=== PATIENT | female | born 1955 | race Caucasian/White ===

== ENCOUNTER → 2017-08-30 | Outpatient (CLI) | payer BC ==
[~2017-08-30] MED LIST: MNTL10T
--- NOTE | 2017-08-31 18:57 | Diagnostic Imaging Report ---
Bilateral screening mammogram 2D views with tomosynthesis The current study was also evaluated with a Computer Aided Detection (CAD) system. Indication: Screening. No current complaints stated on the questionnaire. COMPARISON: 08/24/16 FINDINGS: The breasts are composed of scattered fibroglandular densities. There are scattered benign-appearing calcifications Allowing for technique and positional differences, no suspicious change is seen. IMPRESSION: No significant change. ACR BI-RADS Category 2: Benign findings. Result letter will be mailed to the patient. Note: At least 10% of breast cancer is not imaged by mammography. Dictated by: Dictated on workstation # [id number]
== END ==
LOC: RAD 12:48
PROVIDERS: ATTEND Nurse Practitioner
DX: Z12.31 Encounter for screening mammogram for malignant neoplasm of breast (principal)
CPT/HCPCS: 77067

== ENCOUNTER 2017-09-02 05:42 | Outpatient (CLI) | payer BC ==
[~2017-09-02] VITALS: Ht 170.2 cm; Wt 103.9 kg
[2017-09-02] MEDS ORDERED: CETI10TA20 PO (16:27)
== END 2017-09-02 16:28 ==
LOC: PREOP 05:42
PROVIDERS: ATTEND Surgery
DX: Z01.818 Encounter for other preprocedural examination (principal); Z12.11 Encounter for screening for malignant neoplasm of colon

== ENCOUNTER 2017-09-08 11:08 | Day surgery (SDC) | payer BC ==
[~2017-09-08 11:08] MED LIST changes: +CETI10TA20 PO
[2017-09-08 11:45] VITALS: BP 127/71
[2017-09-08] MEDS ORDERED: LACTATED RINGERS 1,000 ML IV STA (11:59)
--- NOTE | 2017-09-08 12:03 | Progress Note-Pre Operative ---
Pre-Operative Progress Note H&P Reviewed The H&P was reviewed, patient examined and no changes noted. Time Seen by Provider: 11:59 Date H&P Reviewed: Sep 08, 2017 Time H&P Reviewed: 12:03 Pre-Operative Diagnosis: screening colonoscopy YUMIKO HANNA DO Sep 08, 2017 12:03
[2017-09-08] MEDS ORDERED: PROPOFOL INJECTION 50 ML IV ONE (12:18)
[2017-09-08] MEDS ORDERED: MIDAZOLAM 2 MG/2 ML (VERSED) VIAL ONE (12:19)
[2017-09-08] MEDS ORDERED: proPOfol 200 MG/20 ML (DIPRIVAN) VIAL IV ONE (12:44)
[2017-09-08 13:15] VITALS: BP 110/65
--- NOTE | 2017-09-08 13:31 | Progress Note-Post Operative ---
Post-Operative Progess Note Surgeon (s)/Truer Pinion And Wheel (s) Surgeon YUMIKO HANNA DO Truer Pinion And Wheel: none Pre-Operative Diagnosis screening colonoscopy Post-Operative Diagnosis Polyp Early tics Int Hem Procedure & Operative Findings Date of Procedure 09/08/17 Procedure Performed/Findings Colon with snare colon with cold bx Anesthesia Type IV sedation by anesthesia Estimated Blood Loss Estimated blood loss (mL): scant Specimens/Packing Specimens Removed transverse colon polyp sigmoid colon polyp YUMIKO HANNA DO Sep 08, 2017 13:31
--- NOTE | 2017-09-08 13:32 | Endoscopy Discharge Instruct ---
Endo Procedure/Findings Findings 1.: Polyp 2.: Diverticulosis 3.: Internal Hemorrhoids Discharge Instructions - Activity: You might feel a little sleepy until tomorrow. This is due to the medicine you received to relax you. Until tomorrow, you should: NOT drive a car, operate machinery or power tools. NOT drink any alcoholic beverages. NOT make any important decisions or sign importortant papers. Do not return to work until tomorrow, unless otherwise instructed. Resume previous activities tomorrow. Diet: Start by taking liquids. If you tolerate liquids, advance to solid food. make appointment for one week Notify Physician - -If you experience excessive bleeding, unusual abdominal pain, fever, or chest pain, contact your doctor immediately. [phone] Follow-Up: - I have received and understand the above instructions and will call my doctor if I have any further questions. Patient Signature Date Nurse Signature Other (Relationship) YUMIKO HANNA DO Sep 08, 2017 13:32
[2017-09-08 13:45] VITALS: BP 123/79
[2017-09-08 13:51] VITALS: BP 123/79
--- NOTE | 2017-09-09 20:03 | OPERATIVE REPORT ---
DATE OF SERVICE: 09/08/2017 PROCEDURE: Screening colonoscopy. POSTOPERATIVE DIAGNOSES: 1. Colon polyps. 2. Diverticula. 3. Internal hemorrhoids. PROCEDURE: 1. Colonoscopy with snare polypectomy. 2. Colonoscopy with cold biopsy. SURGEON: Dr. Rafiq Chamberlain. ROLL HAULER: None. ANESTHESIA: IV sedation by the anesthesiologist. SPECIMEN: One polyp from the transverse colon and one polyp from the sigmoid colon. BLOOD LOSS: Scant. FLUIDS: Per anesthesia. POSTOPERATIVE CONDITION: Stable. INDICATIONS FOR PROCEDURE: The patient is a 62-year-old female, who has never had a colonoscopy and needs one for screening. FINDINGS: The patient had two small polyps, one in the transverse colon and one in the sigmoid. Able to do a snare polypectomy on the first one, but the second was so flat, had to do a cold biopsy. She had the beginnings of some early diverticula and she had some small internal hemorrhoids. No other obvious pathology found. PROCEDURE NOTE: After informed consent was obtained, the patient was brought to the endoscopy suite, placed in the bed in the left lateral decubitus position. She was administered IV sedation during the case and anesthesiologist monitored her vitals the entire time. Scope was inserted, pushed all the way to the cecum. Once in the cecum, took a picture appendiceal orifice, noted the ileocecal valve and then slowly withdrew the scope insufflating to look circumferentially at the murray, looking at the cecum, up the ascending colon to the hepatic flexure, then into the transverse colon and in the transverse colon, saw a small polyp, did a snare polypectomy of this, then continued down to the splenic flexure and then into the descending colon, saw the beginnings of some early diverticula in the descending and the sigmoid colon, continued down into the sigmoid colon, saw another polyp, attempted to do a snare polypectomy, but could not because it was too flat, so did a cold biopsy, able to get this polyp in one bite and remove it and then continued down into the rectum. Retroflexed in the rectal vault, saw some minimal internal hemorrhoids. The scope was then removed. The patient tolerated this procedure and was recovered in the endoscopy suite. Job ID: [id number] DocumentID: [id number] Dictated Date: 09/09/2017 10:30:22 Power Cutting Machine Operator Date: 09/09/2017 16:47:53 Dictated By: RAFIQ CHAMBERLAIN DO
== END 2017-09-08 13:50 | disposition home or self-care (01) ==
LOC: ENDO 11:08
PROVIDERS: ATTEND Surgery
DX: Z12.11 Encounter for screening for malignant neoplasm of colon (principal); D12.3 Benign neoplasm of transverse colon; K63.5 Polyp of colon; K57.30 Diverticulosis of large intestine without perforation or abscess without bleeding; K64.8 Other hemorrhoids; F17.210 Nicotine dependence, cigarettes, uncomplicated; E66.9 Obesity, unspecified; Z68.35 Body mass index [BMI] 35.0-35.9, adult; Z80.3 Family history of malignant neoplasm of breast

== ENCOUNTER → 2018-09-01 | Outpatient (CLI) | payer BC ==
--- NOTE | 2018-09-01 10:08 | Diagnostic Imaging Report ---
INDICATION: Routine screening. COMPARISON: 08/30/2017 and 08/24/2016. TECHNIQUE: 2D and 3D bilateral screening mammography was performed with CAD. FINDINGS: Scattered fibroglandular densities are identified bilaterally. The parenchymal pattern is stable. No mass or malignant appearing microcalcifications are seen. The axillae are unremarkable. IMPRESSION: No mammographic features suspicious for malignancy are identified. ACR BI-RADS Category 1: Negative. Result letter will be mailed to the patient. Note: At least 10% of breast cancer is not imaged by mammography. Dictated by: Dictated on workstation # [id number]
== END ==
LOC: RAD 08:54
PROVIDERS: ATTEND Nurse Practitioner
DX: Z12.31 Encounter for screening mammogram for malignant neoplasm of breast (principal)
CPT/HCPCS: 77067

== ENCOUNTER → 2018-12-21 | Outpatient (CLI) | payer BC ==
--- NOTE | 2018-12-21 13:04 | Diagnostic Imaging Report ---
PROCEDURE: US Thyroid. TECHNIQUE: Multiple real-time grayscale images were obtained of the thyroid in various projections. INDICATION: Thyroid mass. The right lobe of the thyroid measures 5.3 x 2.1 x 1.9 cm and the left lobe measures 4.3 x 1.8 x 1.5 cm. Isthmus is thickened at 9 mm. There is a circumscribed nodule in the upper pole of the left lobe demonstrating slight increased echogenicity. This measures 10 mm x 8 mm x 9 mm. No microcalcifications are present. Right lobe is unremarkable. IMPRESSION: Solitary 10 mm nodule upper pole left lobe. This has fairly benign features. Even so, followup thyroid ultrasound in 6 months is recommended to show continued stability. Dictated by: Dictated on workstation # [id number]
== END ==
LOC: RAD 12:17
PROVIDERS: ATTEND Internal Medicine Cardiovascular Disease
DX: E04.1 Nontoxic single thyroid nodule (principal)
CPT/HCPCS: 76536

== ENCOUNTER 2018-12-22 10:43 | Outpatient (RCR) | payer BC | END 2019-03-04 | disposition home or self-care (01) | PROVIDERS: ATTEND Nurse Practitioner Family | DX: M25.811 Other specified joint disorders, right shoulder (principal); M75.01 Adhesive capsulitis of right shoulder ==

== ENCOUNTER → 2019-02-15 | Outpatient (CLI) | payer BC ==
[~2019-02-15] VITALS: Ht 172.7 cm; Wt 99.8 kg
--- NOTE | 2019-02-15 14:51 | Diagnostic Imaging Report ---
Indication: Left thyroid nodule. Sonographic guidance was provided for Dr. Matos for a left thyroid nodule fine needle aspiration. A total of 3 passes were made. Impression: Sonographic guidance for Dr. Matos for a left thyroid nodule FNA. Dictated by: Dictated on workstation # [id number]
== END ==
LOC: RAD 10:11
PROVIDERS: ATTEND Otolaryngology Otolaryngology/Facial Plastic Surgery
DX: E04.1 Nontoxic single thyroid nodule (principal)
CPT/HCPCS: 76942

== ENCOUNTER → 2019-07-18 | Outpatient (CLI) | payer BC ==
--- NOTE | 2019-07-18 09:21 | Diagnostic Imaging Report ---
PROCEDURE: US Thyroid. TECHNIQUE: Multiple real-time grayscale images were obtained of the thyroid in various projections. INDICATION: Left thyroid nodule. Correlation is made with prior thyroid ultrasound from 12/21/2018. FINDINGS: The right lobe of the thyroid measures 5.3 x 2.3 x 2.0 cm and the left lobe measures 5.2 x 1.9 x 1.8 cm. Isthmus is 7 mm in thickness. Hyperechoic nodule upper pole left lobe of thyroid measures approximately 14 mm x 8 mm x 10 mm compared with 10 mm x 8 mm x 9 mm on prior. No new mass is identified. IMPRESSION: Minimal increase in size of hyperechoic nodule left upper pole when compared with examination from 12/21/2018. Continued follow-up is recommended. Dictated by: Dictated on workstation # [id number]
== END ==
LOC: RAD 08:16
PROVIDERS: ATTEND Otolaryngology Otolaryngology/Facial Plastic Surgery
DX: E04.1 Nontoxic single thyroid nodule (principal)
CPT/HCPCS: 76536

== ENCOUNTER → 2019-09-11 | Outpatient (CLI) | payer BC ==
--- NOTE | 2019-09-11 13:03 | Diagnostic Imaging Report ---
INDICATION: Routine screening. COMPARISON: 09/01/2018 and 08/30/2017. TECHNIQUE: 2D and 3D bilateral screening mammography was performed with CAD. FINDINGS: Scattered fibroglandular densities are identified bilaterally. Benign calcifications are noted bilaterally. No mass or malignant appearing microcalcifications are seen. The axillae are unremarkable. IMPRESSION: No mammographic features suspicious for malignancy are identified. ACR BI-RADS Category 2: Benign findings. Result letter will be mailed to the patient. Note: At least 10% of breast cancer is not imaged by mammography. Dictated by: Dictated on workstation # [id number]
== END ==
LOC: RAD 08:51
PROVIDERS: ATTEND Nurse Practitioner
DX: Z12.31 Encounter for screening mammogram for malignant neoplasm of breast (principal); Z01.419 Encounter for gynecological examination (general) (routine) without abnormal findings
CPT/HCPCS: 77067

== ENCOUNTER → 2020-01-28 | Outpatient (CLI) | payer BC ==
[~2020-01-28] MED LIST changes: -CETI10TA20 PO; +CETI10TA21 PO
--- NOTE | 2020-01-28 09:38 | Diagnostic Imaging Report ---
PROCEDURE: US Thyroid. TECHNIQUE: Multiple real-time grayscale images were obtained of the thyroid in various projections. INDICATION: Thyroid nodule COMPARISON: 07/18/2019 and 12/21/2018 FINDINGS: The right lobe of thyroid gland measures 4.9 x 2.5 x 2.1 cm. A 0.5 x 0.4 cm ovoid centrally isoechoic and peripherally hypoechoic nodule is identified within the inferior pole of the right thyroid lobe, new from the prior examination. The right thyroid lobe is otherwise unremarkable. The left lobe of thyroid gland measures 5.0 x 1.9 x 1.6 cm. A 1.3 x 1.1 x 0.8 cm solid hyperechoic nodule with peripheral hypoechogenicity is again identified and unchanged from the prior exams. No new left thyroid nodule. Isthmus is unremarkable. IMPRESSION: Dominant 1.3 cm left thyroid nodule is stable from the prior examinations. New 0.5 cm solid right thyroid nodule. Recommend a follow-up ultrasound of the thyroid gland in one year to monitor stability of the bilateral thyroid nodules. Dictated by: Dictated on workstation # [id number]
== END ==
LOC: RAD 07:45
PROVIDERS: ATTEND Internal Medicine Endocrinology, Diabetes & Metabolism
DX: E04.1 Nontoxic single thyroid nodule (principal)
CPT/HCPCS: 76536

== ENCOUNTER → 2020-06-26 | Outpatient (CLI) | payer BC ==
[~2020-06-26] MED LIST changes: -CETI10TA21 PO; +CETI10TA49 PO
--- NOTE | 2020-06-26 08:45 | Diagnostic Imaging Report ---
PROCEDURE: US Thyroid. TECHNIQUE: Multiple real-time grayscale images were obtained of the thyroid in various projections. INDICATION: Thyroid nodules. Exam compared with study 01/28/2020. Right thyroid lobe 4.5 cm, the left lobe 4.8 cm, both stable in volume. Subcentimeter hypoechoic nodules in the right thyroid lobe measured 6 mm and 5 mm long axis and stable. Left lobe mass in its upper pole is hyperechoic, well-defined and 1.2 cm, not significantly changed from prior. Second subcentimeter nodule is heterogeneous in its echotexture at its mid pole, also stable. IMPRESSION: Stable bilateral thyroid nodules. The dominant lesion on the left is hyperechoic and well-defined and is classified as a TI-RADS 3 lesion and based upon recommendations given its size, it requires no further followup. Dictated by: Dictated on workstation # [id number]
== END ==
LOC: RAD 07:52
PROVIDERS: ATTEND Otolaryngology Otolaryngology/Facial Plastic Surgery
DX: E04.2 Nontoxic multinodular goiter (principal); E07.89 Other specified disorders of thyroid
CPT/HCPCS: 76536

== ENCOUNTER → 2020-09-12 | Outpatient (CLI) | payer BC ==
--- NOTE | 2020-09-12 10:34 | Diagnostic Imaging Report ---
INDICATION: Routine screening. Comparison is made to prior mammogram 09/11/2019 and 09/01/2018. 2-D and 3-D bilateral screening mammography was performed with CAD. Both breasts are primarily involutional. The parenchymal pattern appears stable. No mass or malignant appearing microcalcifications are seen. There are occasional benign calcifications. The axillae are unremarkable. IMPRESSION: BI-RADS Category 2 No mammographic features suspicious for malignancy are identified. ACR BI-RADS Category 2: Benign findings. Result letter will be mailed to the patient. Note: At least 10% of breast cancer is not imaged by mammography. Dictated by: Dictated on workstation # [id number]
== END ==
LOC: RAD 08:15
PROVIDERS: ATTEND Nurse Practitioner
DX: Z12.31 Encounter for screening mammogram for malignant neoplasm of breast (principal)
CPT/HCPCS: 77063; 77067

== ENCOUNTER 2021-03-02 08:00 | Outpatient (RCR) | payer BC | END 2021-03-24 | disposition home or self-care (01) | PROVIDERS: ATTEND Orthopaedic Surgery | DX: S82.852A Displaced trimalleolar fracture of left lower leg, initial encounter for closed fracture (principal); Z98.890 Other specified postprocedural states ==

== ENCOUNTER → 2021-09-15 | Outpatient (CLI) | payer BC ==
--- NOTE | 2021-09-15 12:52 | Diagnostic Imaging Report ---
INDICATION: Routine screening. COMPARISON: 09/12/2020 and 09/11/2019. TECHNIQUE: 2D and 3D bilateral screening mammography was performed with CAD. FINDINGS: Scattered fibroglandular densities are identified bilaterally. The parenchymal pattern appears stable. No mass or malignant-appearing microcalcifications are seen. The axillae are unremarkable. IMPRESSION: No mammographic features suspicious for malignancy are identified. ACR BI-RADS Category 1: Negative. Result letter will be mailed to the patient. Note: At least 10% of breast cancer is not imaged by mammography. Dictated by: Dictated on workstation # [id number]
== END ==
LOC: RAD 08:00
PROVIDERS: ATTEND Surgery
DX: Z12.31 Encounter for screening mammogram for malignant neoplasm of breast (principal)
CPT/HCPCS: 77063; 77067

== ENCOUNTER → 2022-05-03 | Outpatient (CLI) | payer MEDICARE ==
--- NOTE | 2022-05-03 12:02 | Diagnostic Imaging Report ---
PROCEDURE: US Thyroid. TECHNIQUE: Multiple real-time grayscale images were obtained of the thyroid in various projections. INDICATION: Followup thyroid nodules. Comparison with previous thyroid ultrasound of 06/26/2020. FINDINGS: Right lobe measures 5.6 x 2 x 1.9 cm. No nodules are seen throughout the right lobe on today's exam. Left lobe measures 5 x 1.5 x 1.6 cm. There is a 1 x 0.7 x 0.7 hyperechoic well-circumscribed nodule which is homogeneous without calcification within the upper portion of the left lobe. IMPRESSION: 1. Hyperechoic well-circumscribed nodule measuring 1.1 cm in greatest dimension superior portion the left lobe appears stable. TI-RADS 3 Dictated by: Dictated on workstation # [id number]
== END ==
LOC: RAD 09:15
PROVIDERS: ATTEND Otolaryngology Otolaryngology/Facial Plastic Surgery
DX: E04.2 Nontoxic multinodular goiter (principal)
CPT/HCPCS: 76536

== ENCOUNTER → 2022-08-16 | Outpatient (CLI) | payer MEDICARE ==
[~2022-08-16] VITALS: Ht 172.7 cm; Wt 106.6 kg
[~2022-08-16] MED LIST changes: +LEVO50TA6 PO
== END ==
LOC: PREOP 05:32
PROVIDERS: ATTEND Surgery
DX: Z01.818 Encounter for other preprocedural examination (principal)

== ENCOUNTER 2022-08-23 07:28 | Day surgery (SDC) | payer MEDICARE ==
[~2022-08-23] VITALS: Ht 172.7 cm; Wt 106.6 kg
[2022-08-23] MEDS ORDERED: GLYCOPYRROLATE 0.2 MG/ML (ROBINUL) 2 ML VIAL IJ ONE (07:29)
[2022-08-23] MEDS ORDERED: LACTATED RINGERS 1,000 ML IV STA (07:37)
[2022-08-23 07:43] VITALS: BP 146/84
[2022-08-23] MEDS ORDERED: MIDAZOLAM 2 MG/2 ML (VERSED) VIAL ONE (08:15)
[2022-08-23] MEDS ORDERED: PROPOFOL INJECTION 50 ML IV ONE (08:16)
--- NOTE | 2022-08-23 08:20 | Progress Note-Pre Operative ---
Pre-Operative Progress Note Date of Available H&P: Aug 10, 2022 Date H&P Reviewed: Aug 23, 2022 Time H&P Reviewed: 08:11 History & Physical: H&P Reviewed, Patient Examed, No changes noted Pre-Operative Diagnosis: Hx of Polyps YUMIKO HANNA DO Aug 23, 2022 08:20
[2022-08-23 08:55] VITALS: BP 118/59
[2022-08-23 09:00] VITALS: BP 114/58
--- NOTE | 2022-08-23 09:00 | Progress Note-Post Operative ---
Post-Operative Progess Note Surgeon (s)/Kennel Technician (s) Surgeon YUMIKO HANNA DO Kennel Technician: none Pre-Operative Diagnosis Hx of Polyps Post-Operative Diagnosis polyps int hemorrhoids Procedure & Operative Findings Date of Procedure 08/23/22 Procedure Performed/Findings Colonoscopy with snare Polypectomy Colonoscopy with hot biopsy PROCEDURE NOTE: After informed consent was obtained, the patient was brought to the endoscopy suite, placed in bed in left lateral decubitus position. She was administered IV sedation by the PARALEGAL LEGAL SECRETARY who then monitored her vitals the entire time, heart rate, blood pressure and pulse ox and the scope was inserted, pushed all the way to about 130 cm and pushed into the cecum. On the way in, in the ascending colon I found a polyp and removed it with hot biopsy. Once in the cecum, took a picture of the appendiceal orifice, noted the ileocecal valve and then slowly withdrew the scope. Insufflating to look circumferentially at the murray starting in the cecum and almost outside of the cecum I found another polyp; removed with hot biopsy. Next, up the ascending colon to the hepatic flexure and then down the transverse colon. In the transverse colon I found another polyp and did another hot biopsy; it t ook two bites to completely remove the polyp. As I was about to continue found another large polyp, that I wanted to completely remove and therefore did a snare polypetomy. Continued to the splenic flexure, into the descending colon, down into the sigmoid and finally into the rectal vault. Retroflexed the scope and took a picture of the internal hemorrhoids. The patient tolerated the procedure. She was recovered in endoscopy suite. Recommended for repeat colonoscopy in 3-5 years, depending on whether or not there are 3 or 4 adenomatous polyps. Anesthesia Type IV sedation by PARALEGAL LEGAL SECRETARY Estimated Blood Loss Estimated blood loss (mL): scant Specimens/Packing Specimens Removed asc colon polyp cecal polyp Transverse colon polyp x 2 YUMIKO HANNA DO Aug 23, 2022 09:00
--- NOTE | 2022-08-23 09:01 | Endoscopy Discharge Instruct ---
Endo Procedure/Findings Findings 1.: Polyp 2.: Internal Hemorrhoids Discharge Instructions - Activity: You might feel a little sleepy until tomorrow. This is due to the medicine you received to relax you. Until tomorrow, you should: NOT drive a car, operate machinery or power tools. NOT drink any alcoholic beverages. NOT make any important decisions or sign importortant papers. Do not return to work until tomorrow, unless otherwise instructed. Resume previous activities tomorrow. Diet: Start by taking liquids. If you tolerate liquids, advance to solid food. 1.: Colonscopy in 3 years Notify Physician - If you experience excessive bleeding, unusual abdominal pain, fever, or chest pain, contact your doctor immediately. YUMIKO HANNA DO Aug 23, 2022 09:01
[2022-08-23 09:05] VITALS: BP 118/72
[2022-08-23 09:25] VITALS: BP 123/74
[2022-08-23 09:36] VITALS: BP 123/74
--- NOTE | 2022-08-23 09:40 | Anesthesia-General Post-Op ---
MAC Patient Condition Mental Status/LOC: Same as Preop Cardiovascular: Satisfactory Nausea/Vomiting: Absent Respiratory: Satisfactory Pain: Controlled Complications: Absent Post Op Complications Complications None Follow Up Care/Instructions Patient Instructions None needed. Anesthesiology Discharge Order Discharge Order Patient is doing well, no complaints, stable vital signs, no apparent adverse anesthesia problems. No complications reported per nursing. MARY MATAMOROS CRNA Aug 23, 2022 09:40
== END 2022-08-23 09:36 | disposition home or self-care (01) ==
LOC: ENDO 07:28
PROVIDERS: ATTEND Surgery
DX: Z12.11 Encounter for screening for malignant neoplasm of colon (principal); D12.0 Benign neoplasm of cecum; D12.3 Benign neoplasm of transverse colon; K63.5 Polyp of colon; K64.8 Other hemorrhoids; Z87.891 Personal history of nicotine dependence; Z85.038 Personal history of other malignant neoplasm of large intestine; E66.9 Obesity, unspecified; Z68.35 Body mass index [BMI] 35.0-35.9, adult
CPT/HCPCS: 88305

== ENCOUNTER → 2022-09-07 | Outpatient (CLI) | payer MEDICARE ==
--- NOTE | 2022-09-07 14:31 | Diagnostic Imaging Report ---
INDICATION: Routine screening. Comparison is made with prior mammogram of 09/15/2021 and 09/12/2020. 2-D and 3-D bilateral screening mammography was performed with CAD. Scattered fibroglandular densities are identified bilaterally. There are occasional benign calcifications. No mass or malignant-appearing microcalcifications are seen. Axillae are unremarkable. IMPRESSION: No mammographic features suspicious for malignancy are identified. ACR BI-RADS Category 2: Benign findings. Result letter will be mailed to the patient. Note: At least 10% of breast cancer is not imaged by mammography. BI-RADS Category 2 Dictated by: Dictated on workstation # [id number]
== END ==
LOC: RAD 09:39
PROVIDERS: ATTEND Surgery
DX: Z12.31 Encounter for screening mammogram for malignant neoplasm of breast (principal)
CPT/HCPCS: 77063; 77067

== ENCOUNTER 2022-09-14 12:34 | Outpatient (RCR) | payer MEDICARE | END 2022-09-25 | disposition home or self-care (01) | LOC: ONC 12:34 | PROVIDERS: ATTEND Internal Medicine Hematology & Oncology | DX: Z71.83 Encounter for nonprocreative genetic counseling (principal); I10 Essential (primary) hypertension; E66.9 Obesity, unspecified | CPT/HCPCS: 99204 ==